=== PATIENT | female | born 1985 | race Caucasian/White ===

== ENCOUNTER 2016-06-02 08:56 | Emergency (ER) | payer MEDICAID ==
[~2016-06-02] VITALS: Ht 167.6 cm; Wt 103.0 kg
[2016-06-02 09:06] VITALS: Ht 167.6 cm; Wt 103.0 kg
--- NOTE | 2016-06-02 10:45 | ERD ---
ER Documentation Chief Complaint Date/Time DATE: 06/02/16 TIME: 10:43 Chief Complaint LOWER ABDOMINAL PAIN HPI Patient is a 31-year-old female who was seen at an outside facility a few days ago and had a CT scan done on that showed it was suspicious for cervical carcinoma. She is here because she would like a second opinion. She states she has no pain. No vaginal bleeding. No nausea or vomiting. No chest pain. No fevers. She has not yet followed up with an special education teaching assistant ROS All systems reviewed and are negative except as per history of present illness. Allergies Allergies: Coded Allergies: No Known Allergy (Verified Allergy, Unknown, 12/05/06) Physical Exam Vitals Vital Signs Date Time Temp Pulse Resp B/P Pulse Ox O2 Delivery O2 Flow Rate FiO2 06/02/16 09:06 98.3 92 19 118/75 97 Physical Exam General: well developed, well nourished, alert, nontoxic, no distress Head: normocephalic, atraumatic Respiratory: Clear to auscaultation bilaterally, speaks in full sentences, no use of accesory muscles or labored breathing, no rales, ronchi, or wheezing Cardiovascular: RRR, No murmurs GI: soft, non tender, non distended, negative murphys sign, negative mcburneys point tenderness, no cva tenderness bilaterally, no rebound or guarding Procedures/MDM 31-year-old female is here because she had a CT scan done at [facility] which showed she may have cervical cancer. She has not yet seen an OB doctor and I explained to her that following up with an WIRE CUTTER would be the next step and I provided her with a list of clinics she can go to. I reviewed this case with my supervising physician Dr. Guerra who agrees with that plan. Recommended this patient follow up with her primary care doctor within 48 hours or return to the emergency room for any worsening of symptoms. However this time I do believe there is suitable for outpatient management. I answered all their questions and they agreed with the plan and were discharged home. Departure Diagnosis: Primary Impression: Cervical carcinoma Condition: Stable Patient Instructions: What Is Cervical Cancer? Referrals: [facility] [id number] [id number] OFFICE FAX , JOSE ANGEL [address] [place], [place] [id number] SMITH, [place] [address] [place] [address] [address]ASH, [facility] [address] [facility], [address], [facility] [address] [address]ACY, [facility] [address] [address] [facility], [place] [address] [facility] [address] [place] [address] [facility] [id number] - [address] MARTINEZ, BRETT [address] [place] [address] [address] MCGRATH, [place] [address] [facility], [place] [address] DR JEFFERY, [facility] [address] [place], [place] [id number] Additional Instructions: Call your primary care doctor TOMORROW for an appointment during the next 1-2 days.See the doctor sooner or return here if your condition worsens before your appointment time. PEPE CARRILLO PA-C Jun 02, 2016 10:45
[2016-06-02] MEDS ORDERED: HYDR-906 PO (11:11)
== END 2016-06-02 11:14 | disposition home or self-care (01) ==
LOC: FTE 08:56
DX: D06.9 Carcinoma in situ of cervix, unspecified (principal)
CPT/HCPCS: 99283